=== PATIENT | female | born 1995 | race Caucasian/White ===

== ENCOUNTER 2020-09-13 06:29 | Inpatient (IN) | payer OTHER ==
[2020-09-13 06:37] VITALS: TEMP 99
[2020-09-13] MEDS ORDERED: MORPHINE SULFATE 2 MG/ML SYRINGE IVP STA (06:43)
[2020-09-13] MEDS ORDERED: ONDANSETRON 4 MG/2 ML VIAL IVP STA (06:43)
[2020-09-13] MEDS ORDERED: KETOROLAC 15 MG/ML 1 ML VIAL IVP STA (06:43)
--- NOTE | 2020-09-13 06:48 | ED ---
General Adult HPI - General Chief complaint: Back Pain/Injury Stated complaint: Back Pain Time Seen by Provider: 09/13/20 06:38 Source: patient Mode of arrival: ambulatory Limitations: physical limitation - History of Present Illness Initial comments: 25 year-old female patient presents to the emergency department for evaluation of right sided chest pain that radiates through to her back. Patient states pain started yesterday. States that pain worsens significantly with deep breathing, movement, and at rest. Denies any injury. She does feel short of breath. Denies any cough. Denies any fever but states that she has been feeling hot. Denies any nausea or vomiting. Denies abdominal pain. States she does have a control implant in her left arm that was supposed to be removed 2 years ago. Denies any leg swelling or calf pain. Denies personal history of blood clots, but states that she does have family history. Does smoke cigarettes. - Related Data Allergies Allergy/AdvReac Type Severity Reaction Status Date / Time No Known Allergies Allergy Verified 09/13/20 06:37 Review of Systems ROS Statement: Those systems with pertinent positive or pertinent negative responses have been documented in the HPI. ROS Other: All systems not noted in ROS Statement are negative. Past Medical History Past Medical History: No Reported History History of Any Multi-Drug Resistant Organisms: None Reported Past Surgical History: No Surgical Hx Reported Additional Past Surgical History / Comment(s): COLONOSCOPY Past Psychological History: No Psychological Hx Reported Smoking Status: Current every day smoker Past Alcohol Use History: Occasional Past Drug Use History: Marijuana General Exam Limitations: physical limitation General appearance: alert, in no apparent distress, other (Physical well- developed, well-nourished adult female patient in mild distress related to pain. Vital signs upon presentation are temperature 99.0F, pulse 118, respirations 20, blood pressure 118/75, pulse ox 96% on room air.) Eye exam: Present: normal appearance, PERRL, EOMI. Absent: scleral icterus, conjunctival injection, periorbital swelling ENT exam: Present: normal exam, normal oropharynx, mucous membranes moist Respiratory exam: Present: normal lung sounds bilaterally. Absent: respiratory distress, wheezes, rales, rhonchi, stridor Cardiovascular Exam: Present: regular rate, normal rhythm, normal heart sounds. Absent: systolic murmur, diastolic murmur, rubs, gallop, clicks GI/Abdominal exam: Present: soft, normal bowel sounds. Absent: distended, tenderness, guarding, rebound, rigid Neurological exam: Present: alert, oriented X3, CN II-XII intact Psychiatric exam: Present: normal affect, normal mood Skin exam: Present: warm, dry, intact, normal color. Absent: rash Course Vital Signs 09/13/20 09/13/20 06:31 09:13 Temperature 99 F Pulse Rate 118 H 112 H Respiratory 20 18 Rate Blood Pressure 118/75 139/92 O2 Sat by Pulse 96 99 Oximetry EKG Findings - EKG Comments: EKG Findings:: EKG obtained at 07 100s her sinus tachycardia with a ventricular rate of 101, MD interval 148, QRS duration 90, QT 338, QTC 438. No evidence of ST elevation or depression. Medical Decision Making - Medical Decision Making 25-year-old female patient presents to the emergency department today for evaluation of right-sided chest pain with radiation through to the back. Pain worsens with deep inspiration and movement. Physical examination did reveal diminished lung sounds. She is afebrile, tachycardic, decrease oxygen saturation 96% on room air. Labs reviewed and did reveal normal white blood cell come here to have elevated d-dimer at 3. We did send her for CT angiogr aphy of the chest which did reveal right-sided pulmonary embolism with pulmonary infarct. She'll be started on high-dose heparin. Upon further questioning she has found out that her family has past history significant for congenital antithrombin III deficiency. Case was discussed with vascular Dr. Jackson who recommends anticoagulation and supportive care. Also consulted hematology. Dr. Roman is accepting. Case discussed with my attending Dr. Albarran. - Lab Data Result diagrams: 09/13/20 06:56 09/13/20 06:56 Lab Results 09/13/20 09/13/20 09/13/20 Range/Units 06:56 06:56 06:56 WBC 10.6 (3.8-10.6) k/uL RBC 5.00 (3.80-5.40) m/uL Hgb 15.9 (11.4-16.0) gm/dL Hct 45.6 (34.0-46.0) % MCV 91.3 (80.0-100.0) fL MCH 31.8 (25.0-35.0) pg MCHC 34.8 (31.0-37.0) g/dL RDW 15.0 (11.5-15.5) % Plt Count 256 (150-450) k/uL MPV 7.4 Neutrophils % 44 % Lymphocytes % 44 % Monocytes % 8 % Eosinophils % 0 % Basophils % 1 % Neutrophils # 4.6 (1.3-7.7) k/uL Lymphocytes # 4.6 (1.0-4.8) k/uL Monocytes # 0.9 (0-1.0) k/uL Eosinophils # 0.0 (0-0.7) k/uL Basophils # 0.1 (0-0.2) k/uL PT (9.0-12.0) sec INR (<1.2) APTT (22.0-30.0) sec D-Dimer 3.05 H (<0.60) mg/L FEU Sodium 137 (137-145) mmol/L Potassium 4.5 (3.5-5.1) mmol/L Chloride 101 (98-107) mmol/L Carbon Dioxide 29 (22-30) mmol/L Anion Gap 7 mmol/L BUN 7 (7-17) mg/dL Creatinine 0.63 (0.52-1.04) mg/dL Est GFR (CKD-EPI)AfAm >90 (>60 ml/min/1.73 sqM) Est GFR (CKD-EPI)NonAf >90 (>60 ml/min/1.73 sqM) Glucose 129 H (74-99) mg/dL Calcium 9.0 (8.4-10.2) mg/dL Total Bilirubin 1.2 (0.2-1.3) mg/dL AST 46 H (14-36) U/L ALT 25 (4-34) U/L Alkaline Phosphatase 185 H (38-126) U/L Troponin I (0.000-0.034) ng/mL Total Protein 7.5 (6.3-8.2) g/dL Albumin 4.2 (3.5-5.0) g/dL Urine Color Urine Appearance (Clear) Urine pH (5.0-8.0) Ur Specific Ringold (1.001-1.035) Urine Protein (Negative) Urine Glucose (UA) (Negative) Urine Ketones (Negative) Urine Blood (Negative) Urine Nitrite (Negative) Urine Bilirubin (Negative) Urine Urobilinogen (<2.0) mg/dL Ur Leukocyte Esterase (Negative) Urine RBC (0-5) /hpf Urine WBC (0-5) /hpf Ur Squamous Epith Cells (0-4) /hpf Urine Bacteria (None) /hpf Urine Mucus (None) /hpf Urine HCG, Qual (Not Detectd) 09/13/20 09/13/20 09/13/20 Range/Units 06:56 06:56 08:27 WBC (3.8-10.6) k/uL RBC (3.80-5.40) m/uL Hgb (11.4-16.0) gm/dL Hct (34.0-46.0) % MCV (80.0-100.0) fL MCH (25.0-35.0) pg MCHC (31.0-37.0) g/dL RDW (11.5-15.5) % Plt Count (150-450) k/uL MPV Neutrophils % % Lymphocytes % % Monocytes % % Eosinophils % % Basophils % % Neutrophils # (1.3-7.7) k/uL Lymphocytes # (1.0-4.8) k/uL Monocytes # (0-1.0) k/uL Eosinophils # (0-0.7) k/uL Basophils # (0-0.2) k/uL PT 10.4 (9.0-12.0) sec INR 1.0 (<1.2) APTT 23.4 (22.0-30.0) sec D-Dimer (<0.60) mg/L FEU Sodium (137-145) mmol/L Potassium (3.5-5.1) mmol/L Chloride (98-107) mmol/L Carbon Dioxide (22-30) mmol/L Anion Gap mmol/L BUN (7-17) mg/dL Creatinine (0.52-1.04) mg/dL Est GFR (CKD-EPI)AfAm (>60 ml/min/1.73 sqM) Est GFR (CKD-EPI)NonAf (>60 ml/min/1.73 sqM) Glucose (74-99) mg/dL Calcium (8.4-10.2) mg/dL Total Bilirubin (0.2-1.3) mg/dL AST (14-36) U/L ALT (4-34) U/L Alkaline Phosphatase (38-126) U/L Troponin I <0.012 (0.000-0.034) ng/mL Total Protein (6.3-8.2) g/dL Albumin (3.5-5.0) g/dL Urine Color Urine Appearance (Clear) Urine pH (5.0-8.0) Ur Specific Ring[place] (1.001-1.035) Urine Protein (Negative) Urine Glucose (UA) (Negative) Urine Ketones (Negative) Urine Blood (Negative) Urine Nitrite (Negative) Urine Bilirubin (Negative) Urine Urobilinogen (<2.0) mg/dL Ur Leukocyte Esterase (Negative) Urine RBC (0-5) /hpf Urine WBC (0-5) /hpf Ur Squamous Epith Cells (0-4) /hpf Urine Bacteria (None) /hpf Urine Mucus (None) /hpf Urine HCG, Qual Not Detected (Not Detectd) 09/13/20 Range/Units 08:27 WBC (3.8-10.6) k/uL RBC (3.80-5.40) m/uL Hgb (11.4-16.0) gm/dL Hct (34.0-46.0) % MCV (80.0-100.0) fL MCH (25.0-35.0) pg MCHC (31.0-37.0) g/dL RDW (11.5-15.5) % Plt Count (150-450) k/uL MPV Neutrophils % % Lymphocytes % % Monocytes % % Eosinophils % % Basophils % % Neutrophils # (1.3-7.7) k/uL Lymphocytes # (1.0-4.8) k/uL Monocytes # (0-1.0) k/uL Eosinophils # (0-0.7) k/uL Basophils # (0-0.2) k/uL PT (9.0-12.0) sec INR (<1.2) APTT (22.0-30.0) sec D-Dimer (<0.60) mg/L FEU Sodium (137-145) mmol/L Potassium (3.5-5.1) mmol/L Chloride (98-107) mmol/L Carbon Dioxide (22-30) mmol/L Anion Gap mmol/L BUN (7-17) mg/dL Creatinine (0.52-1.04) mg/dL Est GFR (CKD-EPI)AfAm (>60 ml/min/1.73 sqM) Est GFR (CKD-EPI)NonAf (>60 ml/min/1.73 sqM) Glucose (74-99) mg/dL Calcium (8.4-10.2) mg/dL Total Bilirubin (0.2-1.3) mg/dL AST (14-36) U/L ALT (4-34) U/L Alkaline Phosphatase (38-126) U/L Troponin I (0.000-0.034) ng/mL Total Protein (6.3-8.2) g/dL Albumin (3.5-5.0) g/dL Urine Color Yellow Urine Appearance Cloudy H (Clear) Urine pH 6.5 (5.0-8.0) Ur Specific [place] 1.020 (1.001-1.035) Urine Protein Trace H (Negative) Urine Glucose (UA) Negative (Negative) Urine Ketones Negative (Negative) Urine Blood Negative (Negative) Urine Nitrite Negative (Negative) Urine Bilirubin Negative (Negative) Urine Urobilinogen 6.0 (<2.0) mg/dL Ur Leukocyte Esterase Moderate H (Negative) Urine RBC 4 (0-5) /hpf Urine WBC 8 H (0-5) /hpf Ur Squamous Epith Cells 12 H (0-4) /hpf Urine Bacteria Rare H (None) /hpf Urine Mucus Few H (None) /hpf Urine HCG, Qual (Not Detectd) - Radiology Data Radiology results: report reviewed, image reviewed Two-view x-ray of the chest is obtained. Report is reviewed in its entirety. Impression by Dr. Garcia shows medial right basilar acute infiltrate. CT chest angiography was obtained. Report was reviewed in its entirety. Impression by Dr. Ayoub shows exam positive for pulmonary emboli. Minimal clot within the lingula and more moderate clot concentrated within segmental and subsegmental branches of the basilar right lower lobe. Focal subpleural airspace disease posterior right base falls within this distribution and may represent a secondary pulmonary infarct rather than pneumonia. Correlate with patient's symptoms. No evidence for right heart strain. Disposition Clinical Impression: Pulmonary embolism, Pulmonary infarct Disposition: ADMITTED IP TO THIS HOSP Condition: Serious Decision to Admit Reason: Admit from EC Decision Date: 09/13/20 Decision Time: 09:20
--- NOTE | 2020-09-13 07:04 | XR ---
EXAMINATION TYPE: XR chest 1V DATE OF EXAM: 09/13/2020 COMPARISON: NONE HISTORY: Right-sided chest pain and shortness of breath. TECHNIQUE: Single AP portable frontal upright view of the chest is obtained. FINDINGS: There is medial right basilar opacity. Left lung is clear. The cardiac silhouette size is within normal limits. The osseous structures are intact. IMPRESSION: Medial right basilar acute infiltrate.
[2020-09-13 07:29] LABS: Basophils # (A) 0.1 k/uL (0-0.2); Basophils % (A) 1 %; Eosinophils % (A) 0 %; HCT 45.6 % (34.0-46.0); HGB 15.9 gm/dL (11.4-16.0); Lymphocytes # (A) 4.6 k/uL (1.0-4.8); Lymphocytes % (A) 44 %; MCH 31.8 pg (25.0-35.0); MCHC 34.8 g/dL (31.0-37.0); MCV 91.3 fL (80.0-100.0); Mean Platelet Volume 7.4; Monocytes # (A) 0.9 k/uL (0-1.0); Monocytes % (A) 8 %; Neutrophils # (A) 4.6 k/uL (1.3-7.7); Neutrophils % (A) 44 %; Platelet Count 256 k/uL (150-450); WBC 10.6 k/uL (3.8-10.6)
[2020-09-13 07:39] LABS: ALT 25 U/L (4-34); AST 46 U/L (14-36); African American GFR (CKD) >90 (>60 ml/min/1.73 sqM); Albumin 4.2 g/dL (3.5-5.0); Alkaline Phosphatase 185 U/L (38-126); Anion Gap 7 mmol/L; Blood Urea Nitrogen 7 mg/dL (7-17); Carbon Dioxide 29 mmol/L (22-30); Chloride 101 mmol/L (98-107); Glucose 129 mg/dL (74-99); Non-African American GFR(CKD) >90 (>60 ml/min/1.73 sqM); Potassium 4.5 mmol/L (3.5-5.1); Sodium 137 mmol/L (137-145); Total Bilirubin 1.2 mg/dL (0.2-1.3); Total Protein 7.5 g/dL (6.3-8.2)
[2020-09-13] MEDS ORDERED: HYDROmorphone 0.5 MG/0.5 ML SYRINGE IVP STA (08:20)
[2020-09-13 08:54] LABS: Appearance,Urine Cloudy (Clear); Bacteria,Urine Rare /hpf; Bilirubin,Urine Negative (Negative); Blood,Urine Negative (Negative); Color,Urine Yellow; Glucose,Urine (UA) Negative (Negative); Ketones,Urine Negative (Negative); Leukocyte Esterase,Urine Moderate (Negative); Mucus,Urine Few /hpf; Nitrite,Urine Negative (Negative); PH, Urine 6.5 (5.0-8.0); Protein,Urine Trace (Negative); RBC,Urine 4 /hpf (0-5); Squamous Epithelial Cell,Urine 12 /hpf (0-4); WBC,Urine 8 /hpf (0-5)
[2020-09-13] MEDS ORDERED: HEPARIN SODIUM,PORCINE 10,000 UNIT/ML 1 ML VIAL IV ONE (09:07)
[2020-09-13] MEDS ORDERED: HEPARIN SODIUM,PORCINE 5,000 UNIT/ML 1 ML VIAL IV PRN (09:07)
--- NOTE | 2020-09-13 09:10 | CT ---
EXAMINATION TYPE: CT chest angio for PE DATE OF EXAM: 09/13/2020 COMPARISON: Radiograph same day HISTORY: 25-year-old female chest pain, Back pain, elevated d-dimer TECHNIQUE: Contiguous axial scanning of the chest performed with IV Contrast, patient injected with 4 8 mL of Isovue 370. Coronal/sagittal MIP reconstructions performed. CT DLP: 172.3 mGycm Automated exposure control for dose reduction was used. FINDINGS: Heart normal size without pericardial effusion. No flattening of the interventricular septum or reflu x of contrast into the hepatic veins. Aorta normal caliber with conventional arch vessel branching anatomy. No evidence for aortic dissecti on. Prominent but nonenlarged subcarinal lymph node at 1.4 cm. Otherwise, no thoracic lymphadenopathy by CT size criteria. Satisfactory opacification of the pulmonary arterial system. Exam positive for pulmonary emboli within segmental and subsegmental branches of the lingula (axial i mage 53) and within segmental and subsegmental branches of the basilar right lower lobe. Prominent cl ot concentrated at the posterior right base. There is focal subpleural consolidation corresponding to this region. No other consolidation or pleural effusion. Visualized upper abdomen shows no gross abnormality. Bones: No osseous destructive process. IMPRESSION: 1. EXAM POSITIVE FOR PULMONARY EMBOLI. MINIMAL CLOT WITHIN THE LINGULA AND MORE MODERATE CLOT CONCENT RATED WITHIN SEGMENTAL AND SUBSEGMENTAL BRANCHES OF THE BASILAR RIGHT LOWER LOBE. 2. FOCAL SUBPLEURAL AIRSPACE DISEASE POSTERIOR RIGHT BASE FALLS WITHIN THIS DISTRIBUTION AND MAY REPR ESENT A SECONDARY PULMONARY INFARCT RATHER THAN PNEUMONIA. CORRELATE WITH PATIENT'S SYMPTOMS. 3. NO EVIDENCE FOR RIGHT HEART STRAIN. CRITICAL FINDINGS CALLED TO DR. SKELTON IN THE ER AT 9:05 AM.
[2020-09-13 09:14] VITALS: RESP 18
[2020-09-13] MEDS ORDERED: HEPARIN SOD,PORK IN 0.45% NACL 25,000 UNIT in 0.45% NACL 1 250ML.BAG IV SCH (09:15)
[2020-09-13] MEDS ORDERED: HYDROmorphone 0.5 MG/0.5 ML SYRINGE IVP PRN (09:16)
[2020-09-13] MEDS ORDERED: NALOXONE 0.4 MG/ML 1 ML VIAL IV PRN (09:16)
[2020-09-13] MEDS ORDERED: ONDANSETRON 4 MG/2 ML VIAL IVP PRN (09:16)
[2020-09-13 09:29] LABS: Partial Thromboplastin Time 23.4 sec (22.0-30.0); Prothrombin Time 10.4 sec (9.0-12.0)
[2020-09-13] MEDS ORDERED: SODIUM CHLORIDE 0.9% 1,000 ML IV SCH (09:30)
[2020-09-13 10:21] LABS: Basophils % (A) 1 %; Eosinophils % (A) 1 %; HCT 42.7 % (34.0-46.0); HGB 14.7 gm/dL (11.4-16.0); Lymphocytes # (A) 2.8 k/uL (1.0-4.8); Lymphocytes % (A) 35 %; MCH 31.6 pg (25.0-35.0); MCHC 34.4 g/dL (31.0-37.0); MCV 91.9 fL (80.0-100.0); Mean Platelet Volume 7.4; Monocytes # (A) 0.7 k/uL (0-1.0); Monocytes % (A) 9 %; Neutrophils # (A) 4.1 k/uL (1.3-7.7); Neutrophils % (A) 51 %; Platelet Count 231 k/uL (150-450); RBC 4.65 m/uL (3.80-5.40); WBC 8.1 k/uL (3.8-10.6)
[2020-09-13] MEDS ORDERED: APIXABAN 5 MG TAB PO SCH (12:00)
[2020-09-13 12:08] VITALS: PULSE 85
--- NOTE | 2020-09-13 12:38 | P.HPIM ---
History of Present Illness 25 year-old female patient presents to the emergency department for evaluation of right sided chest pain that radiates through to her back. Patient states pain started yesterday. States that pain worsens significantly with deep breathing, movement, and at rest. Denies any injury. She does feel short of breath. Denies any cough. Denies any fever but states that she has been feeling hot. Denies any nausea or vomiting. Denies abdominal pain. States she does have a control implant in her left arm that was supposed to be removed 2 years ago. Denies any leg swelling or calf pain. Denies personal history of blood clots, but states that she does have family history in second-degree relatives. Does smoke cigarettes. She denied any recent travel recent surgery. Patient denied using any oral contraceptive pills. Patient had a CT of the chest which showed pulmonary emboli with the minimal cart in the lingula and there is mild subpleural case for his disease possibility of pulmonary infarct. No evidence of pneumonia at this time. Patient present he doesn't have insurance her insurance appears to have lapsed, patient believes that she can get the medical insurance again. Patient will be started on Eliquis will be given 1 month free will be referred to PCP patient get one more month free from PCP, meantime patient's insurance would be effective. Refer to case management documentation regarding this. Patient will need follow-up with neurology to test for procoagulant conditions as patient DVT is not precipitated further testing need to be done a month after after discontinuation of existing anticoagulant medications and patient will need to continue Eliquis for 3-6 months. Review of Systems REVIEW OF SYSTEMS: CONSTITUTIONAL: No fever, no malaise, no fatigue. HEENT: No recent visual problems or hearing problems. Denied any sore throat. CARDIOVASCULAR: No orthopnea, PND, no palpitations, no syncope. PULMONARY: no hemoptysis. GASTROINTESTINAL: No diarrhea, no nausea, no vomiting, no abdominal pain. NEUROLOGICAL: No headaches, no weakness, no numbness. HEMATOLOGICAL: Denies any bleeding or petechiae. GENITOURINARY: Denies any burning micturition, frequency, or urgency. MUSCULOSKELETAL/RHEUMATOLOGICAL: Denies any joint pain, swelling, or any muscle pain. ENDOCRINE: Denies any polyuria or polydipsia. The rest of the 14-point review of systems is negative. Past Medical History Past Medical History: No Reported History History of Any Multi-Drug Resistant Organisms: None Reported Past Surgical History: No Surgical Hx Reported Additional Past Surgical History / Comment(s): COLONOSCOPY Past Psychological History: No Psychological Hx Reported Smoking Status: Current every day smoker Past Alcohol Use History: Occasional Past Drug Use History: Marijuana Medications and Allergies Home Medications Medication Instructions Recorded Confirmed Type Apixaban [Eliquis Starter Pack 0 mg PO DIRECTED 30 Days #1 pack 09/13/20 Rx (for VTE)] traMADol HCL [Ultram] 50 mg PO Q4HR PRN 3 Days #18 tab 09/13/20 Rx Allergies Allergy/AdvReac Type Severity Reaction Status Date / Time No Known Allergies Allergy Verified 09/13/20 10:26 Physical Exam Vitals: Vital Signs Temp Pulse Resp BP Pulse Ox 09/13/20 12:00 85 18 115/69 99 09/13/20 11:00 90 18 111/77 99 09/13/20 10:00 100 18 118/83 99 09/13/20 09:13 112 H 18 139/92 99 09/13/20 06:31 99 F 118 H 20 118/75 96 Intake and Output 09/12/20 09/13/20 09/13/20 22:59 06:59 14:59 Other: Weight 52.163 kg PHYSICAL EXAMINATION: GENERAL: The patient is alert and oriented x3, not in any acute distress. Well developed, well nourished. HEENT: Pupils are round and equally reacting to light. EOMI. No scleral icterus. No conjunctival pallor. Normocephalic, atraumatic. No pharyngeal erythema. No thyromegaly. CARDIOVASCULAR: S1 and S2 present. No murmurs, rubs, or gallops. PULMONARY: Good air entry into bilateral lung hollins mild crackles in the right lower lung bases. ABDOMEN: Soft, nontender, nondistended, normoactive bowel sounds. No palpable organomegaly. MUSCULOSKELETAL: No joint swelling or deformity. EXTREMITIES: No cyanosis, clubbing, or pedal edema. NEUROLOGICAL: Gross neurological examination did not reveal any focal deficits. SKIN: No rashes. Results CBC & Chem 7: 09/13/20 09:55 09/13/20 06:56 Labs: Abnormal Lab Results - Last 24 Hours (Table) 09/13/20 09/13/20 09/13/20 Range/Units 06:56 06:56 08:27 D-Dimer 3.05 H (<0.60) mg/L FEU Glucose 129 H (74-99) mg/dL AST 46 H (14-36) U/L Alkaline Phosphatase 185 H (38-126) U/L Urine Appearance Cloudy H (Clear) Urine Protein Trace H (Negative) Ur Leukocyte Esterase Moderate H (Negative) Urine WBC 8 H (0-5) /hpf Ur Squamous Epith Cells 12 H (0-4) /hpf Urine Bacteria Rare H (None) /hpf Urine Mucus Few H (None) /hpf Assessment and Plan Plan: -Pulmonary embolism: Unprecipitated summary embolism may end up needing anti- correlation for rest of her life. Patient was discharged on Eliquis as mentioned. Patient is presently medically stable will ablate the patient is a patient is saturating well will be discharged today -tachycardia secondary to PE, sinus tachycardia improved -Chest pain and patient was prescribed tramadol for her chest pain -Pulmonary infarct secondary to PE -Nicotine use: Counseling was provided
[2020-09-13 12:52] VITALS: BP 107/76
--- NOTE | 2020-09-13 14:00 | ECHOF ---
Referral Reason:pulmonary embolism MEASUREMENTS -------- HEIGHT: 160.0 cm WEIGHT: 52.2 kg BP: 128/79 RVIDd: 3.0 cm (< 3.3) IVSd: 1.0 cm (0.6 - 1.1) LVIDd: 3.6 cm (3.9 - 5.3) LVPWd: 1.1 cm (0.6 - 1.1) IVSs: 1.3 cm LVIDs: 2.5 cm LVPWs: 1.3 cm LAESV Index (A-L): 14.57 ml/m Ao Diam: 2.8 cm (2.0 - 3.7) AV Cusp: 1.9 cm (1.5 - 2.6) MV EXCURSION: 22.430 mm (> 18.000) MV EF SLOPE: 70 mm/s (70 - 150) EPSS: 0.3 cm MV E [place]: 0.77 m/s MV DecT: 148 ms MV A [place]: 0.58 m/s MV E/A Ratio: 1.33 RAP: 5.00 mmHg RVSP: 21.14 mmHg FINDINGS -------- Sinus rhythm. This was a technically adequate study. The left ventricular size is normal. Left ventricular wall thickness is normal. Overall left vent ricular systolic function is normal with, an EF between 55 - 60 %. The diastolic filling pattern is normal for the age of the patient 6.62. The right ventricle is normal in size. Normal LA size by volume 22+/-6 ml/m2. The right atrial size is normal. Interatrial and interventricular septum intact. There is no evidence of aortic regurgitation. There is no evidence of aortic stenosis. No mitral regurgitation. Mild tricuspid regurgitation present. There is no evidence of pulmonary hypertension. The right v entricular systolic pressure, as measured by Doppler, is 21.14mmHg. There is no pulmonic regurgitation present. The aortic root size is normal. Normal inferior vena cava with normal inspiratory collapse consistent with estimated right atrial pre ssure of 5 mmHg. There is no pericardial effusion. CONCLUSIONS -------- 1. The left ventricular size is normal. 2. Left ventricular wall thickness is normal. 3. Overall left ventricular systolic function is normal with, an EF between 55 - 60 %. 4. The diastolic filling pattern is normal for the age of the patient 6.62 5. Mild tricuspid regurgitation present. ART STUDIO TEACHER: Radha Castaneda RDCS
== END 2020-09-13 12:55 | disposition home or self-care (01) | DRG 176 ==
LOC: EC 06:29 → 3SCARD 09:07
PROVIDERS: ADMIT Internal Medicine; ATTEND Internal Medicine
DX: I26.99 Other pulmonary embolism without acute cor pulmonale (principal); Z83.2 Family history of diseases of the blood and blood-forming organs and certain disorders involving the immune mechanism; F17.210 Nicotine dependence, cigarettes, uncomplicated; Z20.822 Contact with and (suspected) exposure to COVID-19
CPT/HCPCS: 36415; 71045; 71275; 80053; 81001; 81025; 84484; 85025; 85379; 85610; 85730; 87635; 93005; 93306